=== PATIENT | male | born 1935 | race Caucasian/White ===

== ENCOUNTER 2018-08-12 11:11 | Day surgery (SDC) | payer BC ==
[~2018-08-12 11:11] MED LIST: LIDOCAINE 4% (MPF) 5 ML INJ OPER
[2018-08-12] MEDS: DICLOFENAC 0.1% 2.5 ML OPH OPER (12:19)
[2018-08-12] MEDS: PHENYLephrine 10% 5 ML OPH OPER (12:19)
[2018-08-12] MEDS: MOXIFLOXACIN 0.5% 3 ML OPH OPER (12:20)
[2018-08-12] MEDS: TROPICAMIDE 1% 15 ML OPH OPER (12:20)
[2018-08-12] MEDS: LACTATED RINGER'S 1,000 ML IV (12:21)
[2018-08-12] MEDS ORDERED: SODIUM HYALURONATE 14 MG/ML SYG (13:57)
[2018-08-12] MEDS ORDERED: MIDAZOLAM 1 MG/ML 2 ML INJ (14:12)
[2018-08-12] MEDS ORDERED: FENTAnyl 50 MCG/ML VIAL (14:18)
[2018-08-12] MEDS: LIDOCAINE 1.5%/EPI MPF (SDV) 30 ML VIAL (14:31)
[2018-08-12] MEDS: TOBRAMYCIN 0.3% 3.5 GM OPH OINT (14:32)
[2018-08-12] MEDS: TETRACAINE 0.5% 4 ML OPH (14:32)
[2018-08-12] MEDS ORDERED: hydrALAzine 20 MG INJ IV (15:00)
[2018-08-12] MEDS ORDERED: ONDANSETRON 4 MG INJ IV (15:00)
[2018-08-12] MEDS ORDERED: OXYCODONE/ACETAMINOPHEN (5/325) TAB PO ×2 (15:00)
[2018-08-12] MEDS ORDERED: LABETALOL HCL 20MG INJ IV (15:00)
[2018-08-12] MEDS ORDERED: MIDAZOLAM 1 MG/ML 2 ML INJ IV (15:00)
[2018-08-12] MEDS ORDERED: FENTAnyl 50 MCG/ML VIAL IV ×3 (15:00)
[2018-08-12] MEDS: ACETAZOLAMIDE 250 MG TAB PO ×2 (15:59→16:57)
== END 2018-08-12 16:30 | disposition home or self-care (01) ==
LOC: SDS 11:11
DX: H25.11 Age-related nuclear cataract, right eye (principal); I10 Essential (primary) hypertension; E78.5 Hyperlipidemia, unspecified; I25.10 Atherosclerotic heart disease of native coronary artery without angina pectoris
CPT/HCPCS: 66984; 71045